=== PATIENT | male | born 1990 | race Caucasian/White ===

== ENCOUNTER 2018-12-17 16:25 | Emergency (ER) | payer OTHER, MEDICAID, SELFPAY ==
[2018-12-17 16:31] VITALS: BP 112/60; PULSE 79; RESP 18; TEMP 36.7; O2SAT 98
--- NOTE | 2018-12-17 16:32 | ED.CHESTPAIN ---
HPI - Chest Pain General Chief Complaint: Chest Pain Stated Complaint: Chest pain Time Seen by Provider: 12/17/18 16:31 Source: patient Mode of arrival: ambulatory Limitations: no limitations History of Present Illness HPI narrative: This is a 28-year-old male comes to the emergency department with complaint of chest pain. Patient states it is substernal. States it started last night while he was sitting by a [place] fire drinking beer and smoking cigarettes. He states it has been constant. Sort of midsternal just behind the rib cage. He states it is worse with movement such as flexion, rotation bending backwards and forwards. He noticed and worse when he walks around or exerts himself as well. He denies any radiation elsewhere to the neck back or abdomen. He states he did fracture his pain in April. So he does typically have some back pain still he denies any fevers or chills he denies any issues such as cold cough or congestion. States he feels a little short of breath but that it is very mild. He denies any nausea no vomiting. No episodes of sweatiness or diaphoresis. No issues with bowel movements or urination and no swelling in his extremities. He has had this pain on and off for many years. He usually gets it every couple months. He finally has health insurance so decided to come get it checked out. He states that he broke his back 3/4 of his spine. He was in a ?turtle shell? for 3 weeks after the fall. He never followed up. He denies any surgical history. He denies any other medical history. Family history he states his brother had a heart attack at age 16, he also states there is type 1 diabetes. He does not know about his other sibling. He is not in contact with his father. He does smoke, he drinks alcohol, he denies any illicit other than THC. He denies any daily medications. He has never had his symptoms checked out. Related Data Home Medications Medication Instructions Recorded Confirmed No Known Home Medications 12/17/18 12/17/18 Allergies Allergy/AdvReac Type Severity Reaction Status Date / Time No Known Drug Allergies Allergy Verified 12/17/18 16:32 Review of Systems Review of Systems ROS Unobtainable: All systems reviewed & are unremarkable except as noted in HPI and below Constitutional Denies chills, Denies fever(s), Denies lethargy and Denies weakness ENT Ears, Nose, Mouth, and Throat: Denies nasal congestion Cardiovascular Reports chest pain, Reports chest pain at rest, Reports chest pain with activity, Denies diaphoresis, Denies syncope, Denies rapid heart rate, Denies edema, Denies irregular heart rhythm, Denies lightheadedness, Denies radiating jaw, neck or arm pain, Denies palpitations, Reports dyspnea and Denies dyspnea on exertion Respiratory Denies change in phlegm color, Denies chest congestion, Denies cough, Denies excessive phlegm production, Reports dyspnea and Denies dyspnea on exertion Gastrointestinal Gastrointestinal: Denies abdominal pain, Denies change in bowel habits, Denies constipation, Denies diarrhea, Denies nausea and Denies vomiting Genitourinary Denies hematuria, Denies dysuria, Denies flank pain, Denies urinary frequency, Denies urinary incontinence and Denies urinary urgency Musculoskeletal Reports back pain (chronic, no new changes.) Integumentary/Breasts Denies rash Neurologic Denies syncope and Denies weakness Endocrine Denies palpitations [facility] Social History Smoking Status: Current every day smoker Family History (Updated 12/17/18 @ 16:49 by Yun Woody DO) Brother Heart attack Social History (Updated 12/17/18 @ 16:49 by Yun Woody DO) Smoking Status: Current every day smoker alcohol intake: current substance use type: marijuana Exam Narrative Exam Narrative: GENERAL: Alert and oriented x three, then well-appearing male in no acute distress. Patient has a sandwich at bedside. HEENT: Head normocephalic, atraumatic, EOMI, pupils reactive, face symmetric, moist mucous membranes NECK: Supple, full range of motion CARDIOVASCULAR: Regular rate and rhythm without murmurs, rubs or gallops. No JVD. No swelling in lower extremities. Nontender to palpation of the chest. RESPIRATORY: Breath sounds equal bilaterally, no wheezes rales or rhonchi. No tachypnea or accessory muscle use. ABDOMEN: Soft, nontender. Normoactive bowel sounds all 4 quadrants. No guarding or rebound, rigidity, no mass : No CVA tenderness EXTREMITIES: Normal range of motion, no clubbing or edema. Neurovascularly intact NEUROLOGICAL: Cranial nerves II through XII grossly intact. Moving all extremities SKIN: Warm, dry, no petechiae, no rashes or lesions. Initial Vital Signs Initial Vital Signs: Vital Signs Temperature 98.0 F 12/17/18 16:31 Pulse Rate 79 12/17/18 16:31 Respiratory Rate 18 12/17/18 16:31 Blood Pressure 112/60 12/17/18 16:31 Pulse Oximetry 98 12/17/18 16:31 Scores HEART Score Heart Score history: Slightly Suspicious Heart Score EKG: Non-Specific repolarization disturbance Heart Score Age: < 45 years old Heart Score risk factors: 1-2 risk factors PERC Score Age greater than or equal to 50 years: No Heart rate greater than or equal to 100 bpm: No Room Air O2 Sat less than 95%: No Unilateral leg swelling: No Recent trauma or surgery: No Hemoptysis: No Prior PE or DVT: No Hormone Use: No Total PERC Score: 0 Course Orders Ordered: ED Orders 12/17/18 16:34 XR chest 1V Stat EKG-12 Lead Stat 12/17/18 16:35 C-Reactive Protein Quant Stat Complete Blood Count AUTO DIFF Stat Comprehensive Metabolic Panel Stat D Dimer Stat Erythrocyte Sedimentation Rate Stat Lipase Stat Troponin & CK Cardiac Panel Stat Discontinued Medications Aspirin (Aspirin Chew) 324 mg PO NOW ONE Stop: 12/17/18 16:45 Last Admin: 12/17/18 17:04 Dose: 324 mg Pantoprazole Sodium (Protonix) 40 mg IV NOW ONE Stop: 12/17/18 16:45 Last Admin: 12/17/18 17:03 Dose: 40 mg Vital Signs - 8 hr 12/17/18 16:31 12/17/18 17:00 Temperature 98.0 F Pulse Rate 79 74 Respiratory Rate 18 20 Blood Pressure 112/60 Blood Pressure [Left Arm] 108/66 Pulse Oximetry 98 97 MDM - Chest Pain Lab Data Attestation: I reviewed the patient's lab results. Result diagrams: 12/17/18 16:35 12/17/18 16:35 Lab Results 12/17/18 12/17/18 12/17/18 Range/Units 16:35 16:35 16:35 WBC 9.1 (4.5-11.0) X10^3/uL RBC 4.92 (4.5-5.9) X10^6/uL Hgb 15.8 (13.5-17.5) g/dL Hct 45.8 (41-53) % MCV 93.0 (80-100) fL MCH 32.1 (26-34) PG MCHC 34.5 (30-36) % RDW 13.3 (11.6-14.8) % Plt Count 153 (150-400) X10^3/uL Neut % (Auto) 57.0 (50-75) % Lymph % (Auto) 27.1 (25-40) % Waldo % (Auto) 8.2 (3-14) % Eos % (Auto) 7.1 H (2-4) % Baso % (Auto) 0.6 (0-2) % Neut # (Auto) 5200 (1357-9526) /uL Lymph # (Auto) 2500 (7329-0047) /uL Waldo # (Auto) 700 (0-900) /uL Eos # (Auto) 600 H (0-450) /uL Baso # (Auto) 100 (0-100) /uL ESR 2 (0-15) MM/HR D-Dimer (<230) ng/mL Sodium 141 (137-145) mmol/L Potassium 4.0 (3.4-5.1) mmol/L Chloride 104 (98-107) mmol/L Carbon Dioxide 28 (22-32) mmol/L BUN 11 (9-20) mg/dL Creatinine 0.70 (0.66-1.25) mg/dL Estimated GFR > 60.0 (>60) mL/min BUN/Creatinine Ratio 15.7 (6-22) Glucose 95 (70-100) mg/dL Calcium 9.4 (8.4-10.2) mg/dL Total Bilirubin 0.9 (0.2-1.3) mg/dL AST 26 (17-59) IU/L ALT 30 (21-72) IU/L Alkaline Phosphatase 71 (38-126) U/L Total Creatine Kinase 120 (55-170) U/L CK-MB (CK-2) 0.62 (<2.37) ng/mL CK-MB (CK-2) Rel Index 0.5 L (1.5-5.0) % Troponin I < 0.012 (0.01-0.034) ng/mL C-Reactive Protein (<1.0) mg/dL Total Protein 7.2 (6.3-8.2) g/dL Albumin 4.5 (3.5-5.0) g/dL Globulin 2.7 (1.7-4.1) g/dL Albumin/Globulin Ratio 1.7 (1.0-2.8) Lipase (23-300) U/L 12/17/18 12/17/18 12/17/18 Range/Units 16:35 16:35 16:35 WBC (4.5-11.0) X10^3/uL RBC (4.5-5.9) X10^6/uL Hgb (13.5-17.5) g/dL Hct (41-53) % MCV (80-100) fL MCH (26-34) PG MCHC (30-36) % RDW (11.6-14.8) % Plt Count (150-400) X10^3/uL Neut % (Auto) (50-75) % Lymph % (Auto) (25-40) % Waldo % (Auto) (3-14) % Eos % (Auto) (2-4) % Baso % (Auto) (0-2) % Neut # (Auto) (5548-9401) /uL Lymph # (Auto) (7703-6721) /uL Waldo # (Auto) (0-900) /uL Eos # (Auto) (0-450) /uL Baso # (Auto) (0-100) /uL ESR (0-15) MM/HR D-Dimer < 200 (<230) ng/mL Sodium (137-145) mmol/L Potassium (3.4-5.1) mmol/L Chloride (98-107) mmol/L Carbon Dioxide (22-32) mmol/L BUN (9-20) mg/dL Creatinine (0.66-1.25) mg/dL Estimated GFR (>60) mL/min BUN/Creatinine Ratio (6-22) Glucose (70-100) mg/dL Calcium (8.4-10.2) mg/dL Total Bilirubin (0.2-1.3) mg/dL AST (17-59) IU/L ALT (21-72) IU/L Alkaline Phosphatase (38-126) U/L Total Creatine Kinase (55-170) U/L CK-MB (CK-2) (<2.37) ng/mL CK-MB (CK-2) Rel Index (1.5-5.0) % Troponin I (0.01-0.034) ng/mL C-Reactive Protein < 0.5 (<1.0) mg/dL Total Protein (6.3-8.2) g/dL Albumin (3.5-5.0) g/dL Globulin (1.7-4.1) g/dL Albumin/Globulin Ratio (1.0-2.8) Lipase 94 (23-300) U/L Imaging Data Chest x-ray: Radiologist's impression: [address] [address] XRay Report Signed Patient: Power Sherman RayMR#: [id number] : 1990Acct:[id number] Age/Sex: 28 / MDate of Service: 12/17/18 Loc: ED Accession Number: [id number] Procedure: XR chest 1V Ordering Provider: Yun Woody D.O. PROCEDURE: XR CHEST 1V INDICATIONS: chest pain TECHNIQUE: One view of the chest was acquired. COMPARISON: None. FINDINGS: Surgical changes and devices: None. Lungs and pleura: Lungs are clear. No pleural effusions or pneumothorax. Mediastinum: Mediastinal contours appear normal. Heart size is normal. Bones and chest wall: No suspicious bony lesions. Overlying soft tissues appear unremarkable. IMPRESSION: Portable chest within normal limits. Dictated by: Ludwig Yao M.D. on 12/17/2018 at 15:56 Approved by: Ludwig Yao M.D. on 12/17/2018 at 15:56 ECG Data Attestation: I personally reviewed and interpreted this ECG as follows: Prior ECG tracings: not available for review Interpretation: Sinus rhythm rate of 68, [place] 161 QRS of 110 and QTC of 401. No ST elevation appreciated, no depression. RSR are in V1. No priors for comparison. MDM Narrative Medical decision making narrative: Patient given asa 324mg, patient also states caffeine and lack of sleep have made it worse. Give protonix 40mg IV. I did ask patient not to eat his sandwich while waiting for his troponin to return. Recheck patient states that he has some cognitive distance and was able to taken after the Protonix but does not really answer if his pain was resolved. Patient has had constant symptoms for greater than 18 hours. Patient does not have a totally normal EKG but no changes concerning for ACS, pericarditis or other acute coronary cause patient, patient's dimer is negative and low clinical suspicion for pulmonary embolism., patient's ESR and CRP are both negative. He has had symptoms on and off for many years. Discussed that I would recommend he follow up with primary care for recheck. He does have a significant family history but no other risk factors. We did discuss other lesser concerning causes such as GERD and costochondritis is potential causes. An options for [id number] medications like a members all or ibuprofen. Discharge Plan Departure Patient Disposition: Home Clinical Impression: Atypical chest pain Instructions: DI for Atypical Chest Pain Activity Restrictions/Additional Instructions: Follow-up with a primary care provider call [phone] for the health resource protection specialist to help you established with a physician. Return to emergency department for fevers greater than 100.4 F, rapidly worsening chest pain, shortness of breath, passing out, persistent vomiting, black or bloody stools, new swelling in your lower extremities or other new or concerning symptoms. Prescriptions: No Action No Known Home Medications RF: 0
[2018-12-17 16:47] LABS: Add Manual Diff / Slide Review NO; Basophils Absolute Auto 100 /uL (0-100); Basophils Percent Auto 0.6 % (0-2); Eosinophils Absolute Auto 600 /uL (0-450); Eosinophils Percent Auto 7.1 % (2-4); Hematocrit 45.8 % (41-53); Hemoglobin 15.8 g/dL (13.5-17.5); Lymphocytes Absolute Auto 2500 /uL (1100-4500); Lymphocytes Percent Auto 27.1 % (25-40); Mean Corpuscular HGB Conc 34.5 % (30-36); Mean Corpuscular Hemoglobin 32.1 PG (26-34); Monocytes Absolute Auto 700 /uL (0-900); Monocytes Percent Auto 8.2 % (3-14); Neutrophils Absolute Auto 5200 /uL (1500-7000); Platelet Count 153 X10^3/uL (150-400); Red Blood Cell Count 4.92 X10^6/uL (4.5-5.9); Red Cell Distribution Width 13.3 % (11.6-14.8); White Blood Cell Count 9.1 X10^3/uL (4.5-11.0)
--- NOTE | 2018-12-17 16:48 | ED_ITS ---
HPI - Chest Pain General Chief Complaint: Chest Pain Stated Complaint: Chest pain Time Seen by Provider: 12/17/18 16:31 Source: patient Mode of arrival: ambulatory Limitations: no limitations History of Present Illness HPI narrative: This is a 28-year-old male comes to the emergency department with complaint of chest pain. Patient states it is substernal. States it started last night while he was sitting by a [place] fire drinking beer and smoking cigarettes. He states it has been constant. Sort of midsternal just behind the rib cage. He states it is worse with movement such as flexion, rotation bending backwards and forwards. He noticed and worse when he walks around or exerts himself as well. He denies any radiation elsewhere to the neck back or abdomen. He states he did fracture his pain in April. So he does typically have some back pain still he denies any fevers or chills he denies any issues such as cold cough or congestion. States he feels a little short of breath but that it is very mild. He denies any nausea no vomiting. No episodes of sweatiness or diaphoresis. No issues with bowel movements or urination and no swelling in his extremities. He has had this pain on and off for many years. He usually gets it every couple months. He finally has health insurance so decided to come get it checked out. He states that he broke his back 3/4 of his spine. He was in a ?turtle shell? for 3 weeks after the fall. He never followed up. He denies any surgical history. He denies any other medical history. Family history he states his brother had a heart attack at age 16, he also states there is type 1 diabetes. He does not know about his other sibling. He is not in contact with his father. He does smoke, he drinks alcohol, he denies any illicit other than THC. He denies any daily medications. He has never had his symptoms checked out. Related Data Home Medications Medication Instructions Recorded Confirmed No Known Home Medications 12/17/18 12/17/18 Allergies Allergy/AdvReac Type Severity Reaction Status Date / Time No Known Drug Allergies Allergy Verified 12/17/18 16:32 Review of Systems Review of Systems ROS Unobtainable: All systems reviewed & are unremarkable except as noted in HPI and below Constitutional Denies chills, Denies fever(s), Denies lethargy and Denies weakness ENT Ears, Nose, Mouth, and Throat: Denies nasal congestion Cardiovascular Reports chest pain, Reports chest pain at rest, Reports chest pain with activity, Denies diaphoresis, Denies syncope, Denies rapid heart rate, Denies edema, Denies irregular heart rhythm, Denies lightheadedness, Denies radiating jaw, neck or arm pain, Denies palpitations, Reports dyspnea and Denies dyspnea on exertion Respiratory Denies change in phlegm color, Denies chest congestion, Denies cough, Denies excessive phlegm production, Reports dyspnea and Denies dyspnea on exertion Gastrointestinal Gastrointestinal: Denies abdominal pain, Denies change in bowel habits, Denies constipation, Denies diarrhea, Denies nausea and Denies vomiting Genitourinary Denies hematuria, Denies dysuria, Denies flank pain, Denies urinary frequency, Denies urinary incontinence and Denies urinary urgency Musculoskeletal Reports back pain (chronic, no new changes.) Integumentary/Breasts Denies rash Neurologic Denies syncope and Denies weakness Endocrine Denies palpitations [facility] Social History Smoking Status: Current every day smoker Family History (Updated 12/17/18 @ 16:49 by Yun Woody DO) Brother Heart attack Social History (Updated 12/17/18 @ 16:49 by Yun Woody DO) Smoking Status: Current every day smoker alcohol intake: current substance use type: marijuana Exam Narrative Exam Narrative: GENERAL: Alert and oriented x three, then well-appearing male in no acute distress. Patient has a sandwich at bedside. HEENT: Head normocephalic, atraumatic, EOMI, pupils reactive, face symmetric, moist mucous membranes NECK: Supple, full range of motion CARDIOVASCULAR: Regular rate and rhythm without murmurs, rubs or gallops. No JVD. No swelling in lower extremities. Nontender to palpation of the chest. RESPIRATORY: Breath sounds equal bilaterally, no wheezes rales or rhonchi. No tachypnea or accessory muscle use. ABDOMEN: Soft, nontender. Normoactive bowel sounds all 4 quadrants. No guarding or rebound, rigidity, no mass : No CVA tenderness EXTREMITIES: Normal range of motion, no clubbing or edema. Neurovascularly intact NEUROLOGICAL: Cranial nerves II through XII grossly intact. Moving all extremities SKIN: Warm, dry, no petechiae, no rashes or lesions. Initial Vital Signs Initial Vital Signs: Vital Signs Temperature 98.0 F 12/17/18 16:31 Pulse Rate 79 12/17/18 16:31 Respiratory Rate 18 12/17/18 16:31 Blood Pressure 112/60 12/17/18 16:31 Pulse Oximetry 98 12/17/18 16:31 Scores HEART Score Heart Score history: Slightly Suspicious Heart Score EKG: Non-Specific repolarization disturbance Heart Score Age: < 45 years old Heart Score risk factors: 1-2 risk factors PERC Score Age greater than or equal to 50 years: No Heart rate greater than or equal to 100 bpm: No Room Air O2 Sat less than 95%: No Unilateral leg swelling: No Recent trauma or surgery: No Hemoptysis: No Prior PE or DVT: No Hormone Use: No Total PERC Score: 0 Course Orders Ordered: ED Orders 12/17/18 16:34 XR chest 1V Stat EKG-12 Lead Stat 12/17/18 16:35 C-Reactive Protein Quant Stat Complete Blood Count AUTO DIFF Stat Comprehensive Metabolic Panel Stat D Dimer Stat Erythrocyte Sedimentation Rate Stat Lipase Stat Troponin & CK Cardiac Panel Stat Discontinued Medications Aspirin (Aspirin Chew) 324 mg PO NOW ONE Stop: 12/17/18 16:45 Last Admin: 12/17/18 17:04 Dose: 324 mg Pantoprazole Sodium (Protonix) 40 mg IV NOW ONE Stop: 12/17/18 16:45 Last Admin: 12/17/18 17:03 Dose: 40 mg Vital Signs - 8 hr 12/17/18 16:31 12/17/18 17:00 Temperature 98.0 F Pulse Rate 79 74 Respiratory Rate 18 20 Blood Pressure 112/60 Blood Pressure [Left Arm] 108/66 Pulse Oximetry 98 97 MDM - Chest Pain Lab Data Attestation: I reviewed the patient's lab results. Result diagrams: 12/17/18 16:35 12/17/18 16:35 Lab Results 12/17/18 12/17/18 12/17/18 Range/Units 16:35 16:35 16:35 WBC 9.1 (4.5-11.0) X10^3/uL RBC 4.92 (4.5-5.9) X10^6/uL Hgb 15.8 (13.5-17.5) g/dL Hct 45.8 (41-53) % MCV 93.0 (80-100) fL MCH 32.1 (26-34) PG MCHC 34.5 (30-36) % RDW 13.3 (11.6-14.8) % Plt Count 153 (150-400) X10^3/uL Neut % (Auto) 57.0 (50-75) % Lymph % (Auto) 27.1 (25-40) % Hardy % (Auto) 8.2 (3-14) % Eos % (Auto) 7.1 H (2-4) % Baso % (Auto) 0.6 (0-2) % Neut # (Auto) 5200 (3960-0595) /uL Lymph # (Auto) 2500 (6648-7002) /uL Hardy # (Auto) 700 (0-900) /uL Eos # (Auto) 600 H (0-450) /uL Baso # (Auto) 100 (0-100) /uL ESR 2 (0-15) MM/HR D-Dimer (<230) ng/mL Sodium 141 (137-145) mmol/L Potassium 4.0 (3.4-5.1) mmol/L Chloride 104 (98-107) mmol/L Carbon Dioxide 28 (22-32) mmol/L BUN 11 (9-20) mg/dL Creatinine 0.70 (0.66-1.25) mg/dL Estimated GFR > 60.0 (>60) mL/min BUN/Creatinine Ratio 15.7 (6-22) Glucose 95 (70-100) mg/dL Calcium 9.4 (8.4-10.2) mg/dL Total Bilirubin 0.9 (0.2-1.3) mg/dL AST 26 (17-59) IU/L ALT 30 (21-72) IU/L Alkaline Phosphatase 71 (38-126) U/L Total Creatine Kinase 120 (55-170) U/L CK-MB (CK-2) 0.62 (<2.37) ng/mL CK-MB (CK-2) Rel Index 0.5 L (1.5-5.0) % Troponin I < 0.012 (0.01-0.034) ng/mL C-Reactive Protein (<1.0) mg/dL Total Protein 7.2 (6.3-8.2) g/dL Albumin 4.5 (3.5-5.0) g/dL Globulin 2.7 (1.7-4.1) g/dL Albumin/Globulin Ratio 1.7 (1.0-2.8) Lipase (23-300) U/L 12/17/18 12/17/18 12/17/18 Range/Units 16:35 16:35 16:35 WBC (4.5-11.0) X10^3/uL RBC (4.5-5.9) X10^6/uL Hgb (13.5-17.5) g/dL Hct (41-53) % MCV (80-100) fL MCH (26-34) PG MCHC (30-36) % RDW (11.6-14.8) % Plt Count (150-400) X10^3/uL Neut % (Auto) (50-75) % Lymph % (Auto) (25-40) % Hardy % (Auto) (3-14) % Eos % (Auto) (2-4) % Baso % (Auto) (0-2) % Neut # (Auto) (4441-5277) /uL Lymph # (Auto) (0428-0647) /uL Hardy # (Auto) (0-900) /uL Eos # (Auto) (0-450) /uL Baso # (Auto) (0-100) /uL ESR (0-15) MM/HR D-Dimer < 200 (<230) ng/mL Sodium (137-145) mmol/L Potassium (3.4-5.1) mmol/L Chloride (98-107) mmol/L Carbon Dioxide (22-32) mmol/L BUN (9-20) mg/dL Creatinine (0.66-1.25) mg/dL Estimated GFR (>60) mL/min BUN/Creatinine Ratio (6-22) Glucose (70-100) mg/dL Calcium (8.4-10.2) mg/dL Total Bilirubin (0.2-1.3) mg/dL AST (17-59) IU/L ALT (21-72) IU/L Alkaline Phosphatase (38-126) U/L Total Creatine Kinase (55-170) U/L CK-MB (CK-2) (<2.37) ng/mL CK-MB (CK-2) Rel Index (1.5-5.0) % Troponin I (0.01-0.034) ng/mL C-Reactive Protein < 0.5 (<1.0) mg/dL Total Protein (6.3-8.2) g/dL Albumin (3.5-5.0) g/dL Globulin (1.7-4.1) g/dL Albumin/Globulin Ratio (1.0-2.8) Lipase 94 (23-300) U/L Imaging Data Chest x-ray: Radiologist's impression: [address] [address] XRay Report Signed Patient: Power Sherman RayMR#: [id number] : 1990Acct:[id number] Age/Sex: 28 / MDate of Service: 12/17/18 Loc: ED Accession Number: [id number] Procedure: XR chest 1V Ordering Provider: Yun Woody D.O. PROCEDURE: XR CHEST 1V INDICATIONS: chest pain TECHNIQUE: One view of the chest was acquired. COMPARISON: None. FINDINGS: Surgical changes and devices: None. Lungs and pleura: Lungs are clear. No pleural effusions or pneumothorax. Mediastinum: Mediastinal contours appear normal. Heart size is normal. Bones and chest wall: No suspicious bony lesions. Overlying soft tissues appear unremarkable. IMPRESSION: Portable chest within normal limits. Dictated by: Ludwig Yao M.D. on 12/17/2018 at 15:56 Approved by: Ludwig Yao M.D. on 12/17/2018 at 15:56 ECG Data Attestation: I personally reviewed and interpreted this ECG as follows: Prior ECG tracings: not available for review Interpretation: Sinus rhythm rate of 68, [place] 161 QRS of 110 and QTC of 401. No ST elevation appreciated, no depression. RSR are in V1. No priors for comparison. MDM Narrative Medical decision making narrative: Patient given asa 324mg, patient also states caffeine and lack of sleep have made it worse. Give protonix 40mg IV. I did ask patient not to eat his sandwich while waiting for his troponin to return. Recheck patient states that he has some cognitive distance and was able to taken after the Protonix but does not really answer if his pain was resolved. Patient has had constant symptoms for greater than 18 hours. Patient does not have a totally normal EKG but no changes concerning for ACS, pericarditis or other acute coronary cause patient, patient's dimer is negative and low clinical suspicion for pulmonary embolism., patient's ESR and CRP are both negative. He has had symptoms on and off for many years. Discussed that I would recommend he follow up with primary care for recheck. He does have a significant family history but no other risk factors. We did discuss other lesser concerning causes such as GERD and costochondritis is potential causes. An options for [id number]-mld-yqiyivo medications like a members all or ibuprofen. Discharge Plan Departure Patient Disposition: Home Clinical Impression: Atypical chest pain Instructions: DI for Atypical Chest Pain Activity Restrictions/Additional Instructions: Follow-up with a primary care provider call [phone] for the health natural resources faculty member to help you established with a physician. Return to emergency department for fevers greater than 100.4 F, rapidly worsening chest pain, shortness of breath, passing out, persistent vomiting, black or bloody stools, new swelling in your lower extremities or other new or concerning symptoms. Prescriptions: No Action No Known Home Medications RF: 0
[2018-12-17 16:58] LABS: D Dimer < 200 ng/mL (<230)
[2018-12-17 17:00] VITALS: BP 108/66; PULSE 74; RESP 20; O2SAT 97
[2018-12-17 17:00] LABS: Alanine Aminotransferase 30 IU/L (21-72); Albumin 4.5 g/dL (3.5-5.0); Albumin Globulin Ratio 1.7 (1.0-2.8); Alkaline Phosphatase 71 U/L (38-126); Aspartate Aminotransferase 26 IU/L (17-59); BUN Creatinine Ratio 15.7 (6-22); Bilirubin Total 0.9 mg/dL (0.2-1.3); Blood Urea Nitrogen 11 mg/dL (9-20); Calcium 9.4 mg/dL (8.4-10.2); Carbon Dioxide 28 mmol/L (22-32); Chloride 104 mmol/L (98-107); Creatine Kinase 120 U/L (55-170); Estimated Glomerular Filt Rate > 60.0 mL/min (>60); Globulin 2.7 g/dL (1.7-4.1); Glucose 95 mg/dL (70-100); HEMOLYSIS < 15 (0-50); Sodium 141 mmol/L (137-145); Total Protein 7.2 g/dL (6.3-8.2)
[2018-12-17 17:01] LABS: Lipase 94 U/L (23-300)
[2018-12-17] MEDS: PANTOPRAZOLE 40 MG VIAL IV (17:03)
[2018-12-17] MEDS: ASPIRIN 81 MG TAB 324 MG PO (17:04)
[2018-12-17 17:05] LABS: C-Reactive Protein Quant < 0.5 mg/dL (<1.0)
[2018-12-17 17:12] LABS: Troponin I < 0.012 ng/mL (0.01-0.034)
[2018-12-17 17:16] LABS: CKMB % Relative Index 0.5 % (1.5-5.0); Creatine Kinase MB 0.62 ng/mL (<2.37)
[2018-12-17 17:24] LABS: Erythrocyte Sedimentation Rate 2 MM/HR (0-15)
[2018-12-17 17:52] VITALS: BP 102/61; PULSE 72; RESP 20; O2SAT 97
== END 2018-12-17 17:55 | disposition home or self-care (01) ==
PROVIDERS: Emergency Provider Emergency Medicine
DX: R07.89 Other chest pain (principal)
CPT/HCPCS: 36591; 71045; 80053; 82550; 82553; 83690; 84484; 85025; 85379; 85651; 86140; 93005; 96374; 99282; 99285; C9113

== ENCOUNTER 2019-04-25 11:13 | Emergency (ER) | payer OTHER, MEDICAID, SELFPAY ==
--- NOTE | 2019-04-25 11:36 | DI.RAD.S_ITS ---
PROCEDURE: XR CHEST 2V INDICATIONS: cough fever TECHNIQUE: 2 views of the chest were acquired. COMPARISON: [facility], CR, XR CHEST 1V, 12/17/2018, 16:47. FINDINGS: Surgical changes and devices: None. Lungs and pleura: Lungs are clear. No pleural effusions or pneumothorax. Mediastinum: Mediastinal contours are normal. Heart size is normal. Bones and chest wall: No suspicious bony abnormalities. Soft tissues appear unremarkable. IMPRESSION: No acute cardiopulmonary pathology. Dictated by: Aj Figueroa M.D. on 04/25/2019 at 12:02 Approved by: Aj Figueroa M.D. on 04/25/2019 at 12:02
--- NOTE | 2019-04-25 13:17 | ED_ITS ---
HPI - URI/Sore Throat General Chief Complaint: Upper Respiratory Symptoms Stated Complaint: sob/prod cough white/green x3day Time Seen by Provider: 04/25/19 11:29 Source: patient Mode of arrival: Ambulatory Limitations: no limitations History of Present Illness HPI Narrative: 28-year-old male smoker with benign medical history presents with a chief complaint of about a week and a half of hacking cough with production of yellowish sputum, most notably over the past few days. He does state that a low large, deep breath makes him feel like he needs to cough. He denies nausea or vomiting. He denies chest pain is not dizzy nor weak or lightheaded. Related Data Previous Rx's Medication Instructions Recorded albuterol sulfate 2 puff INHALATION Q4H PRN #1 each 04/25/19 doxycycline hyclate 100 mg PO BID #20 tab 04/25/19 Allergies Allergy/AdvReac Type Severity Reaction Status Date / Time No Known Drug Allergies Allergy Verified 12/17/18 16:32 Review of Systems Constitutional Constitutional: Reports chills, Reports fatigue, Denies fever(s), Denies frequent falls, Denies lethargy and Denies weakness Eyes Eyes: Denies change in vision, Denies eye discharge, Denies irritation and Denies loss of vision ENT Ears, Nose, Mouth, and Throat: Denies change in voice, Denies dizziness, Denies neck pain, Denies sore throat and Denies throat swelling Cardiovascular Cardiovascular: Denies chest pain, Denies irregular heart rhythm, Denies lightheadedness, Denies palpitations, Reports dyspnea, Denies dyspnea on exertion and Denies orthopnea Respiratory Respiratory: Reports cough, Reports dyspnea, Denies dyspnea on exertion and Denies wheezing Gastrointestinal Gastrointestinal: Denies abdominal pain, Denies change in bowel habits, Denies diarrhea, Denies nausea and Denies vomiting Genitourinary Genitourinary: Denies hematuria, Denies flank pain, Denies urinary incontinence and Denies urinary urgency Musculoskeletal Musculoskeletal: Denies back pain, Denies muscle weakness, Denies neck pain, Denies numbness and Denies tingling Integumentary/Breasts Skin/Breast: Denies pruritus, Denies erythema, Denies rash and Denies wounds Neurologic Neurologic: Denies behavioral changes, Denies confusion, Denies dizziness, Denies frequent falls, Denies loss of vision, Denies numbness, Denies tingling and Denies weakness Psychiatric Psychiatric: Denies anxiety, Denies behavioral changes, Denies confusion, Denies depression, Denies homicidal ideation and Denies suicidal ideation Endocrine Endocrine: Reports fatigue, Denies flushing and Denies palpitations Hematologic/Lymphatic Hematologic/Lymphatic: Denies easy bruising Allergic/Immunologic Allergic/Immunologic: Denies urticaria, Denies throat swelling and Denies wheezing PFSH Family History (Updated 12/17/18 @ 16:49 by Yun Woody DO) Brother Heart attack Social History (Updated 12/17/18 @ 16:49 by Yun Woody DO) Smoking Status: Current every day smoker alcohol intake: current substance use type: marijuana Family History Brother Heart attack Social History Smoking Status: Current every day smoker alcohol intake: current substance use type: marijuana Exam Narrative Exam Narrative: GENERAL: [28] year old patient appears stated age. Well- nourished, well-developed patient, in mild distress. HEAD: Atraumatic. Normocephalic. EYES: Pupils equal round and reactive. Extraocular motions intact. No scleral icterus. No injection or drainage. ENT: Nose without bleeding, purulent drainage. Throat without erythema, tonsillar hypertrophy or exudate. Airway patent. NECK: Trachea midline. Non tender CARDIOVASCULAR: Regular rate and rhythm without murmurs, gallops, or rubs. RESPIRATORY: Clear to auscultation. Breath sounds equal bilaterally. No wheezes, rales, or rhonchi. GASTROINTESTINAL: Abdomen soft, non-tender, nondistended. EXTREMITIES: No edema or joint tenderness. BACK: Nontender without deformity or crepitance. No flank tenderness. NEURO: AOx3. SKIN: No rash or erythema of visible areas Initial Vital Signs Initial Vital Signs: Vital Signs Temperature 98.9 F 04/25/19 13:56 Pulse Rate 75 04/25/19 13:56 Respiratory Rate 16 04/25/19 13:56 Blood Pressure 108/75 04/25/19 13:56 Pulse Oximetry 96 04/25/19 13:56 Course Orders Ordered: ED Orders 04/25/19 11:36 XR chest 2V Stat Vital Signs Vital signs: Vital Signs - 8 hr 04/25/19 13:56 04/25/19 15:51 04/25/19 15:56 Temperature 98.9 F Pulse Rate 75 62 Respiratory Rate 16 15 16 Blood Pressure 130/78 Blood Pressure [Left Arm] 108/75 110/62 Pulse Oximetry 96 95 97 MDM - URI/Sore Throat Imaging Data Chest x-ray: Radiologist's impression: [address] [address] XRay Report Signed Patient: Power ShermanMR#: [id number] : 1990Acct:[id number] Age/Sex: 28 / MDate of Service: 04/25/19 Loc: ED Accession Number: [id number] Procedure: XR chest 2V Ordering Provider: Luis Armando Archibald D.O. PROCEDURE: XR CHEST 2V INDICATIONS: cough fever TECHNIQUE: 2 views of the chest were acquired. COMPARISON: [facility], , XR CHEST 1V, 12/17/2018, 16:47. FINDINGS: Surgical changes and devices: None. Lungs and pleura: Lungs are clear. No pleural effusions or pneumothorax. Mediastinum: Mediastinal contours are normal. Heart size is normal. Bones and chest wall: No suspicious bony abnormalities. Soft tissues appear unremarkable. IMPRESSION: No acute cardiopulmonary pathology. Dictated by: Aj Figueroa M.D. on 04/25/2019 at 12:02 Approved by: Aj Figueroa M.D. on 04/25/2019 at 12:02 [facility] Narrative Medical decision making narrative: 28-year-old smoker with progressively worsening productive cough and subjective fever over the course of the week presents with unimpressive CXR. Though normal xray and no fever he is at high risk for atypical pneumonia Discharge Plan Departure Patient Disposition: Home Clinical Impression: Atypical pneumonia Discharge Date/Time: 04/25/19 15:57 Instructions: DI for Atypical Pneumonia Activity Restrictions/Additional Instructions: *You have been diagnosed with [atypical pneumonia] *What to do: *Take medications as directed: Your prescriptions have been electronically transmitted to [facility] in [place] at your request *Follow up with your primary care provider in 2-3 days, call for an appointment. Let them know you were seen in the Emergency Department and that we ask that you be seen in follow up *Return to ER if you should have any new, worsening or concerning symptoms Prescriptions: New doxycycline hyclate 100 mg tablet 100 mg PO BID Qty: 20 RF: 0 albuterol sulfate 90 mcg/actuation aerosol powdr breath activated 2 puff INHALATION Q4H PRN (Reason: shortness of breath or wheezing) Qty: 1 RF: 0
[2019-04-25 13:56] VITALS: BP 108/75; PULSE 75; RESP 16; TEMP 37.2; O2SAT 96
--- NOTE | 2019-04-25 13:59 | PC.NURSE ---
pt reports h/o chronic bronchitis since age 10 in fall season. coughing x 3-4 days productive with thick white mucuous. lungs with rhonchi that clears with coughing. no wheezing noted. XR obtained and negative for pneumonia. RR even and unlabored. awaiting MD assessment
[2019-04-25 15:51] VITALS: BP 110/62; RESP 15; O2SAT 95
[2019-04-25 15:56] VITALS: BP 130/78; PULSE 62; RESP 16; O2SAT 97
== END 2019-04-25 15:57 | disposition home or self-care (01) ==
PROVIDERS: Emergency Provider Emergency Medicine
DX: J18.9 Pneumonia, unspecified organism (principal)
CPT/HCPCS: 71046; 99282; 99283

== ENCOUNTER 2019-12-26 12:40 | Emergency (ER) | payer OTHER, MEDICAID, SELFPAY ==
[2019-12-26 12:50] VITALS: BP 108/77; PULSE 86; RESP 16; TEMP 36.7; O2SAT 100; BMI 21.6
--- NOTE | 2019-12-26 12:51 | ED_ITS ---
HPI - Skin/Abscess/Foreign Bdy <ANDERS HandyP - Last Filed: 12/26/19 22:42> General Chief complaint: Skin/Abscess/Foreign Body Stated complaint: Growth Next to Anus, Possibly Growing Larger Time Seen by Provider: 12/26/19 12:44 Source: patient Mode of arrival: Ambulatory Limitations: no limitations History of Present Illness HPI narrative: This is a 29-year-old male, smoker, who presents to ED with chief complain of a lesion in anus. Initially he noticed small growth about a year ago without any trouble but last 10 days the lesion has crew up to a thumb size which has been causing pain. Patient denies fever, chills, nausea or vomiting. Reports pain increases with bowel movements and sitting on his buttock as 8/10 or touching/pressure. Patient is not currently on blood thinner. Patient is not sure whether he has hemorrhoids. Related Data Previous Rx's Medication Instructions Recorded albuterol sulfate 2 puff INHALATION Q4H PRN #1 each 04/25/19 amoxicillin-pot clavulanate 1 tab PO BID 7 Days #14 tab 12/26/19 [Augmentin] Allergies Allergy/AdvReac Type Severity Reaction Status Date / Time No Known Drug Allergies Allergy Verified 12/26/19 12:53 Review of Systems <ANDERS HandyP - Last Filed: 12/26/19 22:42> Review of Systems Narrative: General: Denies fever, chills, fatigue, malaise, sweats. HEENT: Denies sinus pain, ear pain, sore throat, difficulty swallowing, dizziness. Respiratory: Denies dyspnea, cough, wheezing, hemoptysis, sputum. Cardiovascular: Denies chest pain, palpitations, orthopnea, edema. Gastrointestinal: Denies nausea, vomiting, abdominal pain, diarrhea, constipation, melena. : Denies dysuria, frequency, incontinence, hematuria, urinary retention. Musculoskeletal: Denies weakness, joint pain or bony pain. Skin: See HPI Neurologic: Denies weakness, headache, numbness, change in speech, confusion, seizures, incoordination. Psychiatric: No concerning psychosocial issues. 12-point review of systems is negative except for those stated above. Patient History [facility] Last Filed: 06/10/20 22:42> Medical History Thoracic spine fracture (Acute) Family History Brother Heart attack Social History Smoking Status: Current every day smoker alcohol intake: current substance use type: marijuana Smoking Status: Current every day smoker Exam <MARKOS Handy - Last Filed: 12/26/19 22:42> Narrative Exam Narrative: GEN: Alert, oriented x 3, well appearing and nourished, and appears to be in discomfort while sitting on a bed. Head: Normal cephalic, atraumatic. No scalp or temporal tenderness, palpable mass or rash. EYES: Pupils are equal, round, and reactive to light and accommodation. Extraocular muscles are intact bilaterally. There is no subconjunctival hemorrhage, exudate and sclera non-icteric. ENT: Hearing grossly intact. Nose without bleeding, purulent discharge or deviation. Mucous membrane moist, no mucosal lesion. Throat without erythema, tonsillar hypertrophy or exudate. Uvula in midline, airway patent. Neck: Trachea in midline. No JVD, non-tender without lymphadenopathy. No masses or thyroid megaly. Supple, non-tender and no meningeal signs. CARDIAC: Normal regular rate and rhythm without murmurs, gallops, or rubs. No chest wall tenderness. No peripheral edema, cyanosis or pallor. Capillary refill is less than 2 seconds. RESPIRATORY: Lungs are clear to auscultate bilaterally. No cough, wheezes, rales, or rhonchi. No stridor, respiratory distress, increase work of breathing, or accessary muscle used. ABD: Abdomen soft, nontender and non-distended. No guarding or rebound tenderness to palpate. Bowel sounds are normal in all 4 quadrants. There is no palpable masses or organomegaly. EXT: Full painless ROM of all extremities with no loss of sensation, strength, effusion or edema. SKIN: Approximately 2 cm indurated lesion on medial left buttock right above anus which is erythematous and warm to touch with exquisite tenderness. Otherwise, Warm, dry, normal color for patient. BACK: Nontender without deformity or crepitance. No flank tenderness. NEUROLOGICAL: Alert and oriented to place, time and person. Sensation and motor function intact bilaterally. No facial droops, dysphasia. PSYCHIATRIC: Good judgement and reason, without hallucinations, abnormal affect or abnormal behaviors during the examination. Patient is not suicidal. Initial Vital Signs Initial Vital Signs: Vital Signs Temperature 98.1 F 12/26/19 12:50 Pulse Rate 86 12/26/19 12:50 Respiratory Rate 16 12/26/19 12:50 Blood Pressure 108/77 12/26/19 12:50 Pulse Oximetry 100 12/26/19 12:50 <Power Phan DO - Last Filed: 01/01/20 07:24> Initial Vital Signs Initial Vital Signs: Vital Signs Temperature 98.1 F 12/26/19 12:50 Pulse Rate 86 12/26/19 12:50 Respiratory Rate 16 12/26/19 12:50 Blood Pressure 108/77 12/26/19 12:50 Pulse Oximetry 100 12/26/19 12:50 Procedures <MARKOS Handy - Last Filed: 12/26/19 22:42> Abscess I/D I&D #1: Site: other (akua-anal) Side (if applicable): left Local Anesthetic: bupivacaine 0.5% Amount of anesthesia used (mL): 2.5 Technique: incised with #11 blade Amount of fluid expressed (mL): 2 Irrigation: Yes Packing used?: none Complications: pain Scores <[facility] Last Filed: 12/26/19 22:42> GCS Jameel coma scale eye opening: Spontaneous [place] coma scale verbal response: Orientated [place] coma scale motor response: Obey commands [place] coma scale total score: 15 Course <Paolo MARKOS Alegria Last Filed: 12/26/19 22:42> Orders Ordered: Discontinued Medications Ketorolac Tromethamine (Toradol) 30 mg IV NOW ONE Stop: 12/26/19 14:43 Last Admin: 12/26/19 14:48 Dose: 30 mg Documented by: BRIANNA Vital Signs Vital signs: Vital Signs - 8 hr 12/26/19 14:45 Pulse Rate 67 Respiratory Rate 12 Blood Pressure [Left Arm] 110/69 Pulse Oximetry 99 <Power Phan DO - Last Filed: 01/01/20 07:24> Orders Ordered: Discontinued Medications Ketorolac Tromethamine (Toradol) 30 mg IV NOW ONE Stop: 12/26/19 14:43 Last Admin: 12/26/19 14:48 Dose: 30 mg Documented by: BRIANNA Vital Signs Vital signs: Vital Signs - 8 hr 12/26/19 14:45 Pulse Rate 67 Respiratory Rate 12 Blood Pressure [Left Arm] 110/69 Pulse Oximetry 99 MDM - Skin/Abscess/Foreign Bdy <Paolo MARKOS Alegria - Last Filed: 12/26/19 22:42> Differential Diagnosis Differential diagnosis: Likely other (Perianal abscess, pilonidal cyst, rectal abscess) Medical Records Attestation: I reviewed the patient's medical records. Lab Data Attestation: I reviewed the patient's lab results. Result diagrams: 12/26/19 13:16 12/26/19 13:16 Labs: Lab Results 12/26/19 12/26/19 Range/Units 13:16 13:16 WBC 11.7 H (4.5-11.0) X10^3/uL RBC 4.70 (4.5-5.9) X10^6/uL Hgb 15.3 (13.5-17.5) g/dL Hct 45.2 (41-53) % MCV 96.0 (80-100) fL MCH 32.5 (26-34) PG MCHC 33.8 (30-36) % RDW 13.6 (11.6-14.8) % Plt Count 166 (150-400) X10^3/uL Neut % (Auto) 70.5 (50-75) % Lymph % (Auto) 15.0 L (25-40) % [place] % (Auto) 9.0 (3-14) % Eos % (Auto) 5.2 H (2-4) % Baso % (Auto) 0.3 (0-2) % Neut # (Auto) 8200 H (8710-4824) /uL Lymph # (Auto) 1800 (7682-2821) /uL [place] # (Auto) 1100 H (0-900) /uL Eos # (Auto) 600 H (0-450) /uL Baso # (Auto) 0 (0-100) /uL Sodium 138 (137-145) mmol/L Potassium 4.4 (3.4-5.1) mmol/L Chloride 104 (98-107) mmol/L Carbon Dioxide 28 (22-32) mmol/L BUN 10 (9-20) mg/dL Creatinine 0.72 (0.66-1.25) mg/dL Estimated GFR > 60.0 (>60) mL/min BUN/Creatinine Ratio 13.9 (6-22) Glucose 99 (70-100) mg/dL Calcium 9.2 (8.4-10.2) mg/dL Imaging Data CT-Pelvis: Radiologist's Impression: [address] [address] [address] Scan Report Signed Patient: Power Sherman#: [id number] : 1990Acct:[id number] Age/Sex: te of Service: 12/26/19 Loc: ED Accession Number: [id number] Procedure: CT pelvis w con Ordering Provider: Paolo Alegria PROCEDURE: CT PELVIS W CON INDICATIONS: Abscess, lesion in left buttock TECHNIQUE: After the administration of intravenous contrast, 5 mm thick sections acquired from the iliac crests to the symphysis. 5 mm coronal and sagittal reformats were acquired. For radiation dose reduction, the following was used: automated exposure control, adjustment of mA and/or kV according to patient size. COMPARISON: None. FINDINGS: Image quality: Excellent. Peritoneum and bowel: Bowel loops demonstrate normal wall thickness and caliber. No free fluid or air. Genitourinary: Bladder wall thickness is normal. Nodes and vessels: No iliac, pelvic, or inguinal adenopathy by size criteria. Iliac vessels demonstrate normal size and enhancement. Bones: No suspicious bony lesions. Miscellaneous: No inguinal hernias. Note is made of a perianal abscess measuring 8 x 10 mm, with inflammation, just to the left of the gluteal crease, with overlying cutaneous marker identifying site of inflammation. No deep fistulous track is seen extending to adjacent bowel structures more superiorly. IMPRESSION: Isolated finding a paramedian perianal abscess, small in size, without fistulous communication to deeper structures. Dictated by: Trery Dove M.D. on 12/26/2019 at 13:42 Approved by: Terry Dove M.D. on 12/26/2019 at 13:44 MDM Narrative Medical decision making narrative: Patient is afebrile with within normal vital signs. CT pelvis indicates a small size isolated perianal abscess without fistulous communication to deeper structure. Please see procedure note for incision and drainage. Meticulous incision has been done to avoid to involve anus and incision was made in the medial left buttock right above the anus. Small amount of purulent discharge obtained. Wound culture is pending. Patient advised to take [id number] Tylenol and or Motrin for pain management. Advised to use frequent warm pack on affected site and Sitz bath 2 to 3 times a day in a clean bathtub to avoid additional infection. Patient discharged to home with Augmentin b.i.d. for 7 day course. Return precautions were discussed with patient and patient verbalized understanding and agreement with the treatment plan. <Power Phan, DO - Last Filed: 01/01/20 07:24> Lab Data Labs: Lab Results 12/26/19 12/26/19 Range/Units 13:16 13:16 WBC 11.7 H (4.5-11.0) X10^3/uL RBC 4.70 (4.5-5.9) X10^6/uL Hgb 15.3 (13.5-17.5) g/dL Hct 45.2 (41-53) % MCV 96.0 (80-100) fL MCH 32.5 (26-34) PG MCHC 33.8 (30-36) % RDW 13.6 (11.6-14.8) % Plt Count 166 (150-400) X10^3/uL Neut % (Auto) 70.5 (50-75) % Lymph % (Auto) 15.0 L (25-40) % [place] % (Auto) 9.0 (3-14) % Eos % (Auto) 5.2 H (2-4) % Baso % (Auto) 0.3 (0-2) % Neut # (Auto) 8200 H (6545-4749) /uL Lymph # (Auto) 1800 (0481-6958) /uL [place] # (Auto) 1100 H (0-900) /uL Eos # (Auto) 600 H (0-450) /uL Baso # (Auto) 0 (0-100) /uL Sodium 138 (137-145) mmol/L Potassium 4.4 (3.4-5.1) mmol/L Chloride 104 (98-107) mmol/L Carbon Dioxide 28 (22-32) mmol/L BUN 10 (9-20) mg/dL Creatinine 0.72 (0.66-1.25) mg/dL Estimated GFR > 60.0 (>60) mL/min BUN/Creatinine Ratio 13.9 (6-22) Glucose 99 (70-100) mg/dL Calcium 9.2 (8.4-10.2) mg/dL Discharge Plan Departure Patient Disposition: Home Clinical Impression: Abscess, perianal, Encounter for incision and drainage procedure Discharge Date/Time: 12/26/19 15:06 Instructions: DI for Anal Abscess, DI for Incision and Drainage Activity Restrictions/Additional Instructions: You have been diagnosed with [small size perianal abscess per CT scan. Incision and drainage has been done and small amount of purulent discharge was drained. Wound culture is pending.]. What to do: *Take your medications as directed. Please start taking antibiotic medication for 7 days twice a day. Augmentin has been transmitted to [facility] *Follow up with your primary care provider in 2-3 days, call for an appointment. Let them know you were seen in the ED and that we asked you to be seen in follow up. *Return to ED if you have any new, worsening, or concerning symptoms, such as [increasing pain, swelling, redness, fever, chest pain, breathing difficulty, unable to tolerate fluids or any acute concerns]. Prescriptions: New amoxicillin-pot clavulanate [Augmentin] 875-125 mg tablet 1 tab PO BID 7 Days Qty: 14 RF: 0 No Action albuterol sulfate 90 mcg/actuation aerosol powdr breath activated 2 puff INHALATION Q4H PRN (Reason: shortness of breath or wheezing) Qty: 1 RF: 0 Referrals: [facility] [Outside] <Power Phan, - Last Filed: 01/01/20 07:24> Cosign ED Attending Cosyuanature Attestation: Dr Phan Co-Sign Statement: I was available for consultation during this patient's emergency department visit. This chart is signed by myself for administrative purposes only. I did not have direct contact with this patient during this visit. They were seen independently by the APC.
[2019-12-26 13:22] LABS: Add Manual Diff / Slide Review NO; Basophils Absolute Auto 0 /uL (0-100); Basophils Percent Auto 0.3 % (0-2); Eosinophils Absolute Auto 600 /uL (0-450); Eosinophils Percent Auto 5.2 % (2-4); Hematocrit 45.2 % (41-53); Hemoglobin 15.3 g/dL (13.5-17.5); Lymphocytes Absolute Auto 1800 /uL (1100-4500); Mean Corpuscular HGB Conc 33.8 % (30-36); Mean Corpuscular Hemoglobin 32.5 PG (26-34); Monocytes Absolute Auto 1100 /uL (0-900); Neutrophils Absolute Auto 8200 /uL (1500-7000); Neutrophils Percent Auto 70.5 % (50-75); Platelet Count 166 X10^3/uL (150-400); Red Cell Distribution Width 13.6 % (11.6-14.8); White Blood Cell Count 11.7 X10^3/uL (4.5-11.0)
--- NOTE | 2019-12-26 13:24 | PC.NURSE ---
Patient in room in no acute distress. He states that he recently had an abscess appear after having anal intercourse with an unknown object. He did report that he was safe. One day after having this he noticed that something was not right behind his buttocks.
--- NOTE | 2019-12-26 13:32 | DI.CT.S_ITS ---
PROCEDURE: CT PELVIS W CON INDICATIONS: Abscess, lesion in left buttock TECHNIQUE: After the administration of intravenous contrast, 5 mm thick sections acquired from the iliac crests to the symphysis. 5 mm coronal and sagittal reformats were acquired. For radiation dose reduction, the following was used: automated exposure control, adjustment of mA and/or kV according to patient size. COMPARISON: None. FINDINGS: Image quality: Excellent. Peritoneum and bowel: Bowel loops demonstrate normal wall thickness and caliber. No free fluid or air. Genitourinary: Bladder wall thickness is normal. Nodes and vessels: No iliac, pelvic, or inguinal adenopathy by size criteria. Iliac vessels demonstrate normal size and enhancement. Bones: No suspicious bony lesions. Miscellaneous: No inguinal hernias. Note is made of a perianal abscess measuring 8 x 10 mm, with inflammation, just to the left of the gluteal crease, with overlying cutaneous marker identifying site of inflammation. No deep fistulous track is seen extending to adjacent bowel structures more superiorly. IMPRESSION: Isolated finding a paramedian perianal abscess, small in size, without fistulous communication to deeper structures. Dictated by: Terry Dove M.D. on 12/26/2019 at 13:42 Approved by: Terry Dove M.D. on 12/26/2019 at 13:44
[2019-12-26 13:34] LABS: BUN Creatinine Ratio 13.9 (6-22); Blood Urea Nitrogen 10 mg/dL (9-20); Calcium 9.2 mg/dL (8.4-10.2); Carbon Dioxide 28 mmol/L (22-32); Chloride 104 mmol/L (98-107); Estimated Glomerular Filt Rate > 60.0 mL/min (>60); Glucose 99 mg/dL (70-100); HEMOLYSIS < 15 (0-50); Potassium 4.4 mmol/L (3.4-5.1); Sodium 138 mmol/L (137-145)
--- NOTE | 2019-12-26 14:33 | PC.NURSE ---
patient is in the room with PETE Boone. She is performing an I&D and cultures of the abscess. She requested my presence as a farmworker.
[2019-12-26 14:45] VITALS: BP 110/69; PULSE 67; RESP 12; O2SAT 99
[2019-12-26] MEDS: KETOROLAC 60 MG/2 ML VIAL 30 MG IV (14:48)
== END 2019-12-26 15:06 | disposition home or self-care (01) ==
PROVIDERS: Emergency Provider Nurse Practitioner Family
DX: K61.0 Anal abscess (principal)
CPT/HCPCS: 10060; 36415; 72193; 80048; 85025; 87070; 87075; 87205; 96374; 99284; J1885; Q9967

== ENCOUNTER 2020-06-28 08:34 | Emergency (ER) | payer OTHER, MEDICAID, SELFPAY ==
[2020-06-28 08:44] VITALS: BP 138/79; PULSE 103; RESP 16; TEMP 36.8; O2SAT 97; BMI 21.2
--- NOTE | 2020-06-28 08:51 | ED.BACK ---
HPI - Back Pain/Injury General Chief Complaint: Back Pain/Injury Stated Complaint: severe spine pain yesterday morning Time Seen by Provider: 06/28/20 08:51 History of Present Illness HPI Narrative: 29-year-old gentleman with a history of spinal fracture after falling off a roof 3 years ago and no significant recurrent back pain since reports that yesterday he felt to pulling/tugging sensation in his low back after no specific trauma or injury. Over the day continued to worsen. Was so bad by last evening that he needed help standing from a chair. He took some Tylenol and was able to sleep last night but this morning it took him almost 20 minutes to get out of bed and get to the bathroom any having difficulty walking due to pain. He describes no fever, chills, no IV drug use, no recent spinal procedures, no obvious trauma, he notes that the pain is in the lumbar spine associated with significant spasm, better with standing and lying flat worse with bending. He has no radicular pain. He does note that he has had some minor decreased sensation to the tip of the left thumb left index finger and left great toe for about the last week(all predating the pain). He describes no cough, palpitations, abdominal pain, diarrhea. He had a normal bowel movement this morning and aside from sitting on the toilet specifically did not influences pain. Related Data Previous Rx's Medication Instructions Recorded albuterol sulfate 2 puff INHALATION Q4H PRN #1 each 04/25/19 cyclobenzaprine 10 mg PO TID PRN #10 tab 06/28/20 dexamethasone 10 mg PO DAILY #5 tab 06/28/20 oxycodone-acetaminophen 1 tab PO Q6H PRN 4 Days #14 tab 06/28/20 Allergies Allergy/AdvReac Type Severity Reaction Status Date / Time No Known Drug Allergies Allergy Verified 12/26/19 12:53 Review of Systems Review of Systems Narrative: Remainder of review of systems including constitutional, ENT, cardiovascular, respiratory, GI, , musculoskeletal, skin, neurologic and psychiatric systems reviewed and are unremarkable except as noted in HPI. Patient History Medical History Thoracic spine fracture Family History Brother Heart attack Social History Smoking Status: Current every day smoker alcohol intake: current substance use type: marijuana Smoking Status: Current every day smoker tobacco type: cigarettes alcohol intake frequency: a few times a week Substance Use Type: does not use Exam Narrative Exam Narrative: General: Healthy appearing, in significant pain but able to give a complete and coherent history. Well-nourished well-developed HEENT: Moist mucous membranes, normal sclera with reactive pupils, Respiratory: Lungs are clear to auscultation, no wheezing no rales no rhonchi. Full and symmetrical air movement Cardiac: Regular rate and rhythm no murmurs no bruits Abdomen: Soft nontender good bowel tones, no flank pain Skin: Warm and dry, no rashes Neurologic: Grossly neurologically intact with no obvious asymmetries or abnormalities. Brisk patellar reflexes and ankle jerks bilaterally. No sensation changes to the lower extremities. Spine: No obvious abnormalities. No tenderness along the midline. Obvious paraspinous spasm on worse on the left lower lumbar area milder on the right. No skin changes over the spine. Extremities: No trauma, well perfused Psych: Cooperative, appropriate insight and affect Initial Vital Signs Initial Vital Signs: Vital Signs Temperature 98.3 F 06/28/20 08:44 Pulse Rate 103 H 06/28/20 08:44 Respiratory Rate 16 06/28/20 08:44 Blood Pressure 138/79 06/28/20 08:44 Pulse Oximetry 97 06/28/20 08:44 Course Orders Ordered: Discontinued Medications Dexamethasone (Dexamethasone 4 Mg Tablet) 10 mg PO NOW ONE Stop: 06/28/20 09:14 Last Admin: 06/28/20 09:20 Dose: 10 mg Documented by: Ketorolac Tromethamine (Ketorolac 60 Mg/2 Ml Vial) 30 mg IM NOW ONE Stop: 06/28/20 09:14 Last Admin: 06/28/20 09:21 Dose: 30 mg Documented by: Oxycodone/Acetaminophen (Oxycodone/Acetaminophen 5/325 Tablet) 1 tab PO NOW ONE Stop: 06/28/20 09:14 Last Admin: 06/28/20 09:20 Dose: 1 tab Documented by: Oxycodone/Acetaminophen (Oxycodone/Apap 5/325 Prepack) 1 bottle MISC SEEINSTR ONE Stop: 06/28/20 09:14 Last Admin: 06/28/20 09:22 Dose: 1 bottle Documented by: Vital Signs Vital signs: Vital Signs - 8 hr 06/28/20 08:44 Temperature 98.3 F Pulse Rate 103 H Respiratory Rate 16 Blood Pressure 138/79 Pulse Oximetry 97 MDM - Back Pain/Injury MDM Narrative Medical decision making narrative: 29-year-old gentleman with mild lumbar strain yesterday progressing to significant spasm today. No evidence for epidural abscess or other red flags to suggest imaging would be required. No suggestion of intra-abdominal or renal pathology. Feeling somewhat better after IM Toradol and oral Percocet. He is discharged home with 3 days of Decadron, Flexeril for muscle spasm Percocet and ibuprofen for severe pain. Red flags for spine pain or reviewed with him and encouraged to return should he develop any of these. Also suggested he follow-up with his primary care physician and consider referral to physical therapy for lumbar back pain prevention evaluation Discharge Plan Departure Patient Disposition: Home Clinical Impression: Acute back pain Qualifiers: Back pain location: low back pain Back pain laterality: midline Sciatica presence: without sciatica Qualified Code(s): M54.5 - Low back pain Instructions: DI for Back Strain or Sprain Activity Restrictions/Additional Instructions: Thank you for coming in today You clearly have pulled your back and the muscles are spasming to try to protect the area. There are not any red flags for fractures, spinal cord injury, spinal cord infections or other frightening explanations for the pain you are experiencing. This will typically get worse over the 1st 48 hours and then begin to improve. Using 400 mg of ibuprofen (2 [id number] pills) and 1 Tylenol every 6 hours can be very helpful in controlling pain. For severe pain using 400 mg of ibuprofen and 1 Percocet will be helpful. Percocet does cause constipation as it is a narcotic. Please make sure you are using extra water and fiber to avoid problems. For muscle spasm you can try Flexeril/cyclobenzaprine 10 mg every 8 hours. It will make you tired. If you find that is helpful please continue to use it if you find that it does nothing more than make you tired, please do not continue Decadron, a steroid, will help decrease inflammation. You need 10 mg(2.5 pills) on Tuesday and Tuesday. 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 After your feeling better I would recommend following up with the primary care physician and referral to physical therapy to make sure that you can prevent this from ever happening again. If you find that you are continuing to get worse, please return to the emergency department for additional evaluation. Prescriptions: New dexamethasone 4 mg tablet 10 mg PO DAILY Qty: 5 RF: 0 cyclobenzaprine 10 mg tablet 10 mg PO TID PRN (Reason: muscle spasm) Qty: 10 RF: 0 oxycodone-acetaminophen 5-325 mg tablet 1 tab PO Q6H PRN (Reason: pain) 4 Days Qty: 14 RF: 0 No Action albuterol sulfate 90 mcg/actuation aerosol powdr breath activated 2 puff INHALATION Q4H PRN (Reason: shortness of breath or wheezing) Qty: 1 RF: 0
[2020-06-28] MEDS: OXYCODONE/ACETAMINOPHEN 5/325 TABLET 1 TAB PO (09:20)
[2020-06-28] MEDS: dexAMETHasone 4 MG TABLET 10 MG PO (09:20)
[2020-06-28] MEDS: KETOROLAC 60 MG/2 ML VIAL 30 MG IM (09:21)
[2020-06-28] MEDS: OXYCODONE/APAP 5/325 PREPACK 1 BOTTLE MISC (09:22)
[2020-06-28 09:44] VITALS: BP 138/65; PULSE 67; RESP 18; O2SAT 100
== END 2020-06-28 09:44 | disposition home or self-care (01) ==
PROVIDERS: Emergency Provider Emergency Medicine
DX: M54.5 Low back pain (principal); Z87.81 Personal history of (healed) traumatic fracture
CPT/HCPCS: 96372; 99281; 99283; J1885